=== PATIENT | female | born 1935 | race Caucasian/White ===

== ENCOUNTER → 2016-12-27 | Outpatient (CLI) | payer MEDICARE ==
[~2016-12-27] MED LIST: ALPR0.25 PO; ASPI1TAB PO; ATEN50TA2 PO; CALC1TAB30 PO; CHLO125TA PO; HYDR0.2C21 PV; SIMV20TA2 PO; VITA-130 PO
--- NOTE | 2016-12-27 14:12 | REPMRS ---
Patient History The patient states she has not had a clinical breast exam in over a year. Patient is postmenopausal, has history of cancer in the left breast at age 70, and had previous chest radiation therapy at age 70. Family history of breast cancer in sister at age 30, colorectal cancer in sister at age 40, and breast cancer in sister at age 78. Malignant excisional biopsy of the left breast, 2006. Radiation therapy of the left breast, 2006. Took hormonal contraceptives for 10 years. Took unspecified hormones for 8 years. Digital Woman Screen Mammo: December 27, 2016 - Exam #: [id number] Bilateral CC and MLO view(s) were taken. Technologist: Bridgette Alicia, Technologist Prior study comparison: January 06, 2016, digital woman screen mammo performed at [facility]. January 03, 2015, digital woman screen mammo performed at [facility]. FINDINGS: The breast tissue is heterogeneously dense. This may lower the sensitivity of mammography. There has been no change in the appearance of the mammogram from the prior studies. There is a moderate amount of residual fibroglandular tissue which is fairly symmetric. There is no interval development of dominant mass, areas of architectural distortion, or clustered microcalcification typical of malignancy. ASSESSMENT: BI-RADS/ACR category 1 mammogram. Negative. Recommendation Routine screening mammogram in 1 year (for women over age 40). This mammogram was interpreted with the aid of an FDA-approved computer-aided dectection system. Electronically Signed By: Eddie Lozano MD 12/27/16 [id number]
== END ==
LOC: M WHC 12:46
PROVIDERS: ATTEND Family Medicine
DX: Z12.31 Encounter for screening mammogram for malignant neoplasm of breast (principal); Z78.0 Asymptomatic menopausal state; Z92.3 Personal history of irradiation; Z85.3 Personal history of malignant neoplasm of breast; Z80.3 Family history of malignant neoplasm of breast; Z92.21 Personal history of antineoplastic chemotherapy; Z92.29 Personal history of other drug therapy; Z92.0 Personal history of contraception

== ENCOUNTER 2017-05-30 17:36 | Emergency (ER) | payer MEDICARE ==
[~2017-05-30] VITALS: Ht 149.9 cm; Wt 55.5 kg
[~2017-05-30 17:36] MED LIST changes: -VITA-130 PO; +VITA500T PO
[2017-05-30] MEDS ORDERED: METO-398 PO (18:30)
[2017-05-30] MEDS ORDERED: CLON0.5T PO (18:30)
[2017-05-30 19:03] LABS: BASO % 0.5 % (0.0-1.0); EOS # 0.1 10^3/uL (0.0-0.50); IMMATURE GRANULOCYTE % 0.5 % (0-0); LYMPH # 1.1 10^3/uL (1.5-4.5); LYMPH % 17.9 % (24.0-44.0); MEAN CORPUSCULAR HEMOGLOBIN 30.7 pg (27.0-33.0); MEAN CORPUSCULAR HGB CONC 34.5 g/dl (32.0-36.5); MEAN CORPUSCULAR VOLUME 88.8 fl (80.0-96.0); MONO # 0.6 10^3/uL (0.0-0.8); MONO % 8.7 % (0.0-5.0); NEUTROPHILS # 4.5 10^3/uL (1.8-7.7); NEUTROPHILS % 71.4 % (36.0-66.0); PLATELET COUNT, AUTOMATED 173 10^3/uL (150-450); RED CELL DISTRIBUTION WIDTH 12.2 % (11.5-14.5); WHITE BLOOD COUNT 6.3 10^3/uL (4.0-10.0)
[2017-05-30] MEDS ORDERED: LORazepam 2 MG/ML VIAL (J2060) IV STA (19:27)
[2017-05-30] MEDS ORDERED: LABETALOL HCL 100 MG/20 ML VIAL IV STA ×2 (19:27→21:13)
[2017-05-30 19:34] LABS: ANION GAP 8 MEQ/L (8-16); BLOOD UREA NITROGEN 16 MG/DL (7-18); CALCIUM LEVEL 9.5 MG/DL (8.8-10.2); CARBON DIOXIDE LEVEL 29 MEQ/L (21-32); CHLORIDE LEVEL 102 MEQ/L (98-107); CREATININE FOR GFR 0.72 MG/DL (0.55-1.02); GLOMERULAR FILTRATION RATE > 60.0 (>32); GLUCOSE, FASTING 97 MG/DL (83-110); POTASSIUM SERUM 3.2 MEQ/L (3.5-5.1); SODIUM LEVEL 139 MEQ/L (136-145)
--- NOTE | 2017-05-30 19:37 | REP ---
AP PORTABLE CHEST: 05/30/2017. Clinical history: Chest pain. Comparison: 12/22/2015, 10/03/2006. Findings: Lungs well inflated. CP angles sharply defined. No effusion or definite infiltrate. Some minor fibrotic or atelectatic changes in the infrahilar region on the right. Heart size upper limits of normal. No vascular redistribution or pulmonary edema. Calcified aortic arch without aneurysm. Airway intact. Bones without acute finding. Impression. 1. Some minor basilar fiber ectatic change without acute infiltrate or effusion. 2. Borderline heart size, no edema. 3. No widening of the mediastinum. Airway and aorta intact. Signed by Ramos Lock MD 05/30/2017 08:05 P
[2017-05-30] MEDS ORDERED: POTASSIUM CHLORIDE 10 MEQ SR TABLET PO ONE (20:00)
[2017-05-30] MEDS ORDERED: METOPROLOL SUCC (TopROL XL) 50MG **XL** TAB PO ONE (21:15)
[2017-05-30 21:31] VITALS: BP 192/79
[2017-05-30] MEDS ORDERED: KEFL500C17 PO (22:11)
[2017-05-30] MEDS ORDERED: CEPHALEXIN 250 MG CAP PO ONE (22:15)
[2017-05-30 22:23] VITALS: BP 163/71
--- NOTE | 2017-06-01 14:07 | ECGEPIP ---
Stationary ECG Study [facility] - ED Test Date: 2017-05-30 Pat Name: HERBERT BYRNES Department: Room: - Gender: F Dam Tender Assistant: ansley : [id number] Requested By: Janie Acosta Order Number: [id number] Reading MD: Frieda Gates Measurements Intervals [place] Rate: 66 P: 76 ME: 164 QRS: 45 QRSD: 96 T: 63 QT: 391 QTc: 412 Interpretive Statements SINUS RHYTHM NONSPECIFIC ST & T-WAVE ABNORMALITY DELAYED R PROGRESSION SIMILAR 12/22/15 Electronically Signed On 06-01-2017 14:07:30 EST by Frieda Gates
== END 2017-05-30 22:38 | disposition home or self-care (01) ==
LOC: M ED 17:36
DX: I10 Essential (primary) hypertension (principal); N39.0 Urinary tract infection, site not specified; E87.6 Hypokalemia; Z79.82 Long term (current) use of aspirin; Z79.899 Other long term (current) drug therapy; Z88.8 Allergy status to other drugs, medicaments and biological substances; Z88.0 Allergy status to penicillin; Z88.1 Allergy status to other antibiotic agents
CPT/HCPCS: 36415; 71010; 80048; 81001; 82550; 82553; 84439; 84443; 84484; 85025; 93005; 93041; 94760; 96374; 96375; 99285; J2060

== ENCOUNTER → 2018-01-04 | Outpatient (CLI) | payer MEDICARE | LOC: M WHC 10:23 | DX: Z12.31 Encounter for screening mammogram for malignant neoplasm of breast (principal); Z80.3 Family history of malignant neoplasm of breast; Z85.3 Personal history of malignant neoplasm of breast; Z98.890 Other specified postprocedural states; R92.8 Other abnormal and inconclusive findings on diagnostic imaging of breast | CPT/HCPCS: 77067 ==

== ENCOUNTER → 2018-12-27 | Outpatient (CLI) | payer MEDICARE ==
[~2018-12-27] MED LIST changes: -ASPI1TAB PO; +ASPI81TA26 PO; +CLON0.5T8 PO; +KEFL500C17 PO; +METO200T28 PO
--- NOTE | 2018-12-27 15:51 | REPMRS ---
Patient History The patient states she has not had a clinical breast exam in over a year. Family history of breast cancer at age 30 in sister, colorectal cancer at age 40 in sister, breast cancer at age 78 in sister. Malignant excisional biopsy of the left breast, 2006. Radiation therapy of the left breast, 2005. Took hormonal contraceptives for 10 years. Took unspecified hormones for 8 years. Digital Woman Screen Mammo: December 27, 2018 - Exam #: [id number] Bilateral CC and MLO view(s) were taken. Technologist: Kathie Thakur, Technologist Prior study comparison: January 04, 2018, bilateral digital woman screen mammo performed at [facility]. December 27, 2016, digital woman screen mammo performed at [facility]. January 06, 2016, digital woman screen mammo performed at [facility]. FINDINGS: The breast tissue is heterogeneously dense. This may lower the sensitivity of mammography. There are stable post treatment changes in the left breast. There is a moderate amount of heterogeneously dense fibroglandular tissue which is fairly symmetric. There is no interval development of dominant mass, architectural distortion, or clustered microcalcification typical of malignancy. There has been no change in the appearance of the mammogram from the prior studies. 3-D tomosynthesis shows no additional findings. Assessment: BI-RADS/ACR category 2 mammogram. Benign Findings. Recommendation Routine screening mammogram of both breasts in 1 year (for women over age 40). This mammogram was interpreted with the aid of an FDA-approved computer-aided dectection system. Electronically Signed By: Michele Bonner MD 12/27/18 [id number]
== END ==
LOC: M WHC 10:50
PROVIDERS: ATTEND Family Medicine
DX: Z12.31 Encounter for screening mammogram for malignant neoplasm of breast (principal); Z80.3 Family history of malignant neoplasm of breast; Z85.3 Personal history of malignant neoplasm of breast; Z92.3 Personal history of irradiation; Z92.0 Personal history of contraception; Z92.23 Personal history of estrogen therapy

== ENCOUNTER → 2019-03-22 | Outpatient (CLI) | payer MEDICARE ==
--- NOTE | 2019-03-27 11:04 | DEXA ---
AP SPINE L1 - L4 1.489 2.6 4.5 LT FEMUR TOTAL 1.064 0.4 2.7 LT NECK 0.987 -0.4 2.0 RT FEMUR TOTAL 1.025 0.1 2.4 RT NECK 1.033 0.0 2.3 TOTAL BODY TOTAL OTHER COMMENTS: Normal bone densitometry of the spine and hips. The density of the spine has increased 12.4% since the initial exam on 04/04/2003. The spine density has increased 18.2% since the most recent exam on 01/14/2009. The density of the left hip has decreased 0.7% since the initial exam on 04/04/2003. The density of the left hip has increased 3.8% since the most recent exam on 01/14/2009. The density of the right hip has decreased 0.6% since the initial exam on 04/04/2003. The density of the right hip has increased 2.0% since the most recent exam on 01/14/2009. FOLLOW-UP: Recommendation for the next bone density exam: 5 years. ALEXANDR
== END ==
LOC: M WHC 09:18
PROVIDERS: ATTEND Family Medicine
DX: Z13.820 Encounter for screening for osteoporosis (principal)

== ENCOUNTER 2019-04-12 16:50 | Emergency (ER) | payer MEDICARE ==
[~2019-04-12] VITALS: Ht 149.9 cm; Wt 50.0 kg
[2019-04-12] MEDS ORDERED: oxyCODONE 5MG TAB PO ONE (17:15)
--- NOTE | 2019-04-12 17:41 | REPVR ---
PROCEDURE INFORMATION: Exam: CT Head Without Contrast Exam date and time: 04/12/2019 5:08 PM Clinical history: 84 years old, female; Injury or trauma; Fall; Initial encounter; Blunt trauma (contusions or hematomas); Consciousness not specified TECHNIQUE: Imaging protocol: Computed tomography of the head without contrast. Radiation optimization: All CT scans at this facility use at least one of these dose optimization techniques: automated exposure control; mA and/or kV adjustment per patient size (includes targeted exams where dose is matched to clinical indication); or iterative reconstruction. COMPARISON: CT Head without contrast 12/22/2015 7:54 PM FINDINGS: Brain: There is moderate age-related parenchymal volume loss. 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 Ventricles: The degree of ventricular dilatation is normal for age. No pathologic enlargement demonstrated. Bones/joints: Unremarkable. No acute fracture. Sinuses: Visualized sinuses are unremarkable. No fluid levels. Mastoid air cells: Visualized mastoid air cells are well aerated. Soft tissues: Unremarkable. IMPRESSION: There is moderate age-related parenchymal volume loss. 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 Electronically signed by: Moshe Matthews On 04/12/2019 17:41:22 PM
--- NOTE | 2019-04-12 17:47 | REPVR ---
PROCEDURE INFORMATION: Exam: CT Cervical Spine Without Contrast Exam date and time: 04/12/2019 5:08 PM Clinical history: 84 years old, female; Injury or trauma; Fall; Initial encounter; Blunt trauma TECHNIQUE: Imaging protocol: Computed tomography images of the cervical spine without contrast. Radiation optimization: All CT scans at this facility use at least one of these dose optimization techniques: automated exposure control; mA and/or kV adjustment per patient size (includes targeted exams where dose is matched to clinical indication); or iterative reconstruction. COMPARISON: No relevant prior studies available. FINDINGS: Vertebrae: No acute fracture. Normal alignment. Discs/Spinal canal/Neural foramina: Marked degenerative changes in the atlantoaxial joint with thickened partially calcified ligaments. Narrowing at C5-6 with small vertebral osteophytes. Mild bilateral foraminal narrowing at C5. Small posterior disc protrusion at C3-4 and C4-5 without spinal cord impingement. Posterior disc osteophyte complex at C6-7 effacing the ventral subarachnoid space without significant cord impingement. Soft tissues: Moderate to severe atherosclerotic changes demonstrated in both proximal internal carotid arteries at the bifurcation. Unremarkable. Lungs: Lung apices are normal. IMPRESSION: Mild degenerative spondylosis. No acute findings. Electronically signed by: Moshe Matthews On 04/12/2019 17:47:10 PM
--- NOTE | 2019-04-12 17:55 | REPVR ---
PROCEDURE INFORMATION: Exam: CT Lumbar Spine Without Contrast Exam date and time: 04/12/2019 5:08 PM Clinical history: 84 years old, female; Injury or trauma; Fall; Initial encounter; Blunt trauma (contusions or hematomas) TECHNIQUE: Imaging protocol: Computed tomography images of the lumbar spine without contrast. Radiation optimization: All CT scans at this facility use at least one of these dose optimization techniques: automated exposure control; mA and/or kV adjustment per patient size (includes targeted exams where dose is matched to clinical indication); or iterative reconstruction. COMPARISON: No relevant prior studies available. FINDINGS: Vertebrae: Mild degenerative anterolisthesis of L4 and L5. Mild diffuse degenerative spondylosis of the lumbar spine. Discs/Spinal canal/Neural foramina: Mild to moderate central spinal stenosis at L2-L3, moderate to severe central spinal stenosis at L3-L4, severe central spinal stenosis L4-L5. Soft tissues: Marked atherosclerotic calcifications in the abdominal aorta without evidence of aneurysm. Nonobstructive right renal calculus. Left renal cysts measure up to 2.8 cm. Otherwise Unremarkable. IMPRESSION: 1. Degenerative spondylosis. 2. Multilevel spinal stenoses as described above most pronounced at L4-L5 there is a severe central spinal stenosis. 3. No acute findings. Electronically signed by: Moshe Matthews On 04/12/2019 17:54:46 PM
[2019-04-12 18:30] VITALS: BP 185/81
== END 2019-04-12 18:39 | disposition home or self-care (01) ==
LOC: EDBD 16:50 → M ED 16:50 → EDSEX 16:50 → M ED 18:39
DX: S00.03XA Contusion of scalp, initial encounter (principal); S39.012A Strain of muscle, fascia and tendon of lower back, initial encounter; W19.XXXA Unspecified fall, initial encounter; Y92.098 Other place in other non-institutional residence as the place of occurrence of the external cause; M47.816 Spondylosis without myelopathy or radiculopathy, lumbar region; M48.061 Spinal stenosis, lumbar region without neurogenic claudication; M47.892 Other spondylosis, cervical region; I10 Essential (primary) hypertension; Z88.5 Allergy status to narcotic agent; Z88.6 Allergy status to analgesic agent; Z88.1 Allergy status to other antibiotic agents; Z88.0 Allergy status to penicillin; Z79.899 Other long term (current) drug therapy; Z79.82 Long term (current) use of aspirin

== ENCOUNTER → 2020-01-24 | Outpatient (CLI) | payer MEDICARE ==
[~2020-01-24] MED LIST changes: +CLON0.5T2 PO; -CLON0.5T8 PO; -SIMV20TA2 PO; +SIMV20TA22 PO; +VITA-243 PO; -VITA500T PO
--- NOTE | 2020-01-24 11:33 | REPMRS ---
Patient History The patient states she has not had a clinical breast exam in over a year. Family history of breast cancer at age 30 in sister, colorectal cancer at age 40 in sister, breast cancer at age 78 in sister. Malignant excisional biopsy of the left breast, 2006. Radiation therapy of the left breast, 2006. Took hormonal contraceptives for 10 years. Took unspecified hormones for 8 years. 3D TOMOSYNTHESIS WAS PERFORMED. JODY E[facility] Digital Woman Screen Mammo: January 24, 2020 - Exam #: [id number] Bilateral CC and MLO view(s) were taken. Technologist: Susannah Johnson, Technologist Prior study comparison: December 27, 2018, bilateral digital woman screen mammo performed at [facility]. January 04, 2018, bilateral digital woman screen mammo performed at [facility]. FINDINGS: The breast tissue is extremely dense which could obscure a lesion on mammography. There has been no change in the appearance of the mammogram from the prior studies. There is a moderate amount of residual fibroglandular tissue which is fairly symmetric. There is no interval development of dominant mass, areas of architectural distortion, or clustered microcalcification typical of malignancy. Assessment: BI-RADS/ACR category 1 mammogram. Negative Mammogram. Recommendation Routine screening mammogram in 1 year (for women over age 40). This mammogram was interpreted with the aid of an FDA-approved computer-aided dectection system. Electronically Signed By: Eddie Lozano MD 01/24/20 [id number]
== END ==
LOC: M WHC 09:00
PROVIDERS: ATTEND Family Medicine
DX: Z12.31 Encounter for screening mammogram for malignant neoplasm of breast (principal); Z80.3 Family history of malignant neoplasm of breast; Z80.0 Family history of malignant neoplasm of digestive organs; Z85.3 Personal history of malignant neoplasm of breast; Z92.0 Personal history of contraception

== ENCOUNTER → 2021-01-26 | Outpatient (CLI) | payer MEDICARE ==
--- NOTE | 2021-01-26 16:26 | REPMRS ---
Patient History The patient states she has not had a clinical breast exam in over a year. Family history of breast cancer at age 30 in sister, colorectal cancer at age 40 in sister, breast cancer at age 78 in sister. Malignant excisional biopsy of the left breast, 2006. Radiation therapy of the left breast, 2006. Took hormonal contraceptives for 10 years. Took unspecified hormones for 8 years. Patient states no breast complaints today. Patient has signed MRS History Sheet. Digital Woman Screen Mammo: January 26, 2021 - Exam #: [id number] Bilateral CC and MLO view(s) were taken. Technologist: Kathie Thakur, Technologist Prior study comparison: January 24, 2020, bilateral digital woman screen mammo performed at [facility]. December 27, 2018, bilateral digital woman screen mammo performed at [facility]. FINDINGS: The breast tissue is heterogeneously dense. This may lower the sensitivity of mammography. Screening. This patient?s lifetime risk for the development of invasive breast cancer can?t be calculated due to her age (less than 20 or greater than 85 years) or a prior history of in situ or invasive breast cancer. Digital screening (2D) mammography was performed bilaterally. Additionally, breast tomosynthesis (3D mammography) was performed bilaterally in the CC and MLO projections. Today's exam was compared to the prior exam/exams. By history, the patient has no complaints of a palpable breast abnormality or other significant breast complaints. The patient is status post lumpectomy/chemo radiation therapy due to breast carcinoma. The breasts are unchanged in size and shape. There are no awa-areas of internal architectural distortion. There are no awa-soft tissue densities or areas of spiculation.Once again, stable benign appearing calcifications are seen. There is unchanged post radiation skin thickening. IMPRESSION: BI-RADS Category 2- Benign Findings. There is no evidence of malignant alteration of the breasts. Routine bilateral screening mammogram recommended at its regularly scheduled annual interval. The Volpara volumetric breast density category is C, the breasts are heterogenously dense which may obscure small masses. This mammogram was read with the assistance of [employer],an FDA approved computer aided detection system for mammography. Due to the density of the breasts or Tyrer Cuzick score of 20% or greater, MRI/whole breast screening ultrasound is warranted. Negative x-ray reports should not delay surgical consultation if a dominant or clinically suspicious mass is present. Not all breast cancers can be identified by mammography. Therefore, we recommend that you continue to perform regular breast self-examination and physical examination and then promptly contact your physician of any concerns or changes. Adenosis and dense breasts may obscure an underlying neoplasm. Assessment: BI-RADS/ACR category 2 mammogram. Benign Findings. Recommendation Routine screening mammogram of both breasts in 1 year. Electronically Signed By: Akin Ziegler DO 01/26/21 [id number]
== END ==
LOC: M WHC 15:19
PROVIDERS: ATTEND Family Medicine
DX: Z12.31 Encounter for screening mammogram for malignant neoplasm of breast (principal)

== ENCOUNTER 2021-12-07 18:06 | Observation (INO) | payer MEDICARE ==
[~2021-12-07] VITALS: Ht 137.2 cm; Wt 52.1 kg
[2021-12-07] MEDS ORDERED: METO1TAB7 (18:18)
[2021-12-07] MEDS ORDERED: HYDR12.55 (18:18)
[2021-12-07] MEDS ORDERED: hydroCHLOROthiazide 12.5 MG CAPSULE PO ONE (22:25)
[2021-12-07] MEDS ORDERED: clonazePAM 0.5 MG TAB PO ONE (22:25)
[2021-12-07] MEDS ORDERED: METOPROLOL SUCC *XL* 25MG TAB (TopROL *XL*) PO ONE (22:25)
[2021-12-07 23:11] LABS: BASO % 0.5 % (0.0-1.0); EOS # 0.1 10^3/uL (0.0-0.5); EOS % 1.4 % (0.0-3.0); HEMOGLOBIN 14.5 g/dl (12.0-15.5); LYMPH % 25.5 % (24.0-44.0); MEAN CORPUSCULAR HEMOGLOBIN 29.5 pg (27.0-33.0); MEAN CORPUSCULAR VOLUME 89.6 fl (80.0-96.0); MONO # 0.6 10^3/uL (0.0-0.8); MONO % 7.7 % (2.0-8.0); NEUTROPHILS % 64.4 % (36.0-66.0); PLATELET COUNT, AUTOMATED 219 10^3/uL (150-450); RED BLOOD COUNT 4.91 10^6/uL (4.00-5.40); WHITE BLOOD COUNT 7.8 10^3/uL (4.0-10.0)
[2021-12-07] MEDS ORDERED: LABETALOL 100MG/20ML VIAL IV STA ×2 (23:12→23:58)
[2021-12-07 23:36] LABS: BLOOD UREA NITROGEN 18 MG/DL (7-18); CALCIUM LEVEL 9.5 MG/DL (8.8-10.2); CARBON DIOXIDE LEVEL 30 MEQ/L (21-32); CHLORIDE LEVEL 102 MEQ/L (98-107); CREATININE FOR GFR 0.71 MG/DL (0.55-1.30); GLOMERULAR FILTRATION RATE > 60.0 (>32); GLUCOSE, FASTING 104 MG/DL (70-100); POTASSIUM SERUM 3.9 MEQ/L (3.5-5.1); SODIUM LEVEL 139 MEQ/L (136-145)
[2021-12-08 00:20] VITALS: BP 238/66
[2021-12-08] MEDS ORDERED: HYDR12CA PO (00:29)
[2021-12-08] MEDS ORDERED: METO1TAB7 PO (00:29)
[2021-12-08] MEDS ORDERED: ACET-897 PO (00:30)
[2021-12-08] MEDS ORDERED: SYST1SOL4 OU (00:30)
[2021-12-08] MEDS ORDERED: HOME MED LIST COMPLETE! XX SCH (00:30)
[2021-12-08 01:11] LABS: RSV AMPLIFICATION NEGATIVE (NEGATIVE)
[2021-12-08] MEDS ORDERED: LABETALOL 100MG/20ML VIAL IV PRN (02:05)
[2021-12-08] MEDS ORDERED: MAALOX 30 ML SUSP *UDC PO PRN (02:05)
[2021-12-08] MEDS ORDERED: ACETAMINOPHEN TAB 650MG DOSE (2X325MG) PO PRN (02:05)
[2021-12-08] MEDS ORDERED: MOM 30ML SUSPENSION UDC PO PRN (02:05)
[2021-12-08] MEDS ORDERED: METAL LOCK LOOP XX ONE (03:20)
[2021-12-08] MEDS ORDERED: REMDESIVIR 200 MG in NS 250 ML IV ONE (04:00)
[2021-12-08 04:10] VITALS: BP 168/70
[2021-12-08] MEDS: HEPARIN SOD (PORCINE) 5000UNITS/ML 1ML VIAL/SYRINGE SC SCH ×2 (05:16→14:00)
[2021-12-08 05:54] LABS: BASO % 0.4 % (0.0-1.0); EOS % 0.3 % (0.0-3.0); HEMATOCRIT 39.8 % (36.0-47.0); HEMOGLOBIN 13.3 g/dl (12.0-15.5); LYMPH % 9.4 % (24.0-44.0); MEAN CORPUSCULAR HEMOGLOBIN 29.9 pg (27.0-33.0); MEAN CORPUSCULAR HGB CONC 33.4 g/dl (32.0-36.5); MEAN CORPUSCULAR VOLUME 89.4 fl (80.0-96.0); MONO % 8.6 % (2.0-8.0); PLATELET COUNT, AUTOMATED 171 10^3/uL (150-450); RED BLOOD COUNT 4.45 10^6/uL (4.00-5.40); WHITE BLOOD COUNT 11.1 10^3/uL (4.0-10.0)
[2021-12-08] MEDS ORDERED: SODIUM CHLORIDE 0.9% INJ 10 ML SYR IV ONE (06:00)
[2021-12-08 06:32] LABS: ALBUMIN 3.2 GM/DL (3.2-5.2); ALT/SGPT 24 U/L (12-78); BILIRUBIN,TOTAL 0.9 MG/DL (0.2-1.0); BLOOD UREA NITROGEN 20 MG/DL (7-18); CALCIUM LEVEL 9.3 MG/DL (8.8-10.2); CARBON DIOXIDE LEVEL 29 MEQ/L (21-32); CHLORIDE LEVEL 104 MEQ/L (98-107); CREATININE FOR GFR 0.81 MG/DL (0.55-1.30); GLOMERULAR FILTRATION RATE > 60.0 (>32); GLUCOSE, FASTING 150 MG/DL (70-100); MAGNESIUM LEVEL 2.1 MG/DL (1.8-2.4); POTASSIUM SERUM 3.1 MEQ/L (3.5-5.1); SODIUM LEVEL 137 MEQ/L (136-145); TOTAL PROTEIN 6.9 GM/DL (6.4-8.2)
[2021-12-08] MEDS ORDERED: POTASSIUM CHLORIDE 10MEQ SR TABLET PO ONE (07:00)
[2021-12-08 07:19] LABS: INR 1.02; PROTHROMBIN TIME 13.8 SECONDS (12.7-14.5)
[2021-12-08 07:20] LABS: PARTIAL THROMBOPLASTIN TIME 32.5 SECONDS (25.9-37.0)
[2021-12-08 07:22] LABS: D-DIMER QUANT 809.63 ng/ml (<500)
[2021-12-08 07:37] LABS: C REACTIVE PROTEIN QUANTITATIV 0.64 MG/DL (0.00-0.30)
[2021-12-08 08:18] VITALS: BP 158/70
[2021-12-08] MEDS ORDERED: ASPIRIN 81MG ENTERIC TABLET PO SCH (09:00)
[2021-12-08] MEDS ORDERED: clonazePAM 0.5 MG TAB PO SCH (09:00)
[2021-12-08] MEDS ORDERED: ASCORBIC ACID 500 MG TAB PO SCH (09:00)
[2021-12-08 12:05] VITALS: BP 166/70
[2021-12-08 12:42] VITALS: BP 138/64
[2021-12-08] MEDS ORDERED: HYDR-3490 PO (13:55)
[2021-12-08] MEDS ORDERED: SIMVASTATIN 20 MG TAB PO SCH (21:00)
[2021-12-08] MEDS ORDERED: METOPROLOL SUCC *XL* 25MG TAB (TopROL *XL*) PO SCH (21:00)
[2021-12-09] MEDS ORDERED: REMDESIVIR 100 MG in NS 250 ML IV SCH (04:00)
[2021-12-09] MEDS ORDERED: SODIUM CHLORIDE 0.9% INJ 10 ML SYR IV SCH (05:00)
== END 2021-12-08 15:25 | disposition home or self-care (01) ==
LOC: M ED 18:06 → M ED INP 18:07 → M 4MAIN 12-08 04:14
PROVIDERS: ADMIT Family Medicine; ATTEND Family Medicine
DX: I16.0 Hypertensive urgency (principal); U07.1 COVID-19; F41.9 Anxiety disorder, unspecified; N31.2 Flaccid neuropathic bladder, not elsewhere classified; C44.329 Squamous cell carcinoma of skin of other parts of face; C44.602 Unspecified malignant neoplasm of skin of right upper limb, including shoulder; E78.9 Disorder of lipoprotein metabolism, unspecified; Z79.899 Other long term (current) drug therapy; Z79.82 Long term (current) use of aspirin; Z88.0 Allergy status to penicillin; Z88.1 Allergy status to other antibiotic agents; Z88.5 Allergy status to narcotic agent; Z88.8 Allergy status to other drugs, medicaments and biological substances
CPT/HCPCS: 36415; 71046; 80048; 80053; 82550; 82728; 83615; 83735; 84484; 85025; 85379; 85384; 85610; 85730; 86140; 87631; 93005; 93041; 93306; 94760; 96372; 96374; 96375; 96376; 99285; G0378; J0248; J1644

== ENCOUNTER 2022-01-03 07:07 | Inpatient (IN) | payer MEDICARE ==
[~2022-01-03] VITALS: Ht 152.4 cm; Wt 51.0 kg
[~2022-01-03 07:07] MED LIST changes: +ACET-897 PO; +HYDR-3490 PO; +HYDR12.55; +HYDR12CA PO; +METO1TAB7; +METO1TAB7 PO; +SYST1SOL4 OU
[2022-01-03] MEDS ORDERED: ONDANSETRON 4MG/2ML VIAL IV ONE (08:55)
[2022-01-03] MEDS ORDERED: fentaNYL 100 MCG/2 ML INJECTION IV ONE (08:55)
[2022-01-03 14:06] LABS: BASO % 0.3 % (0.0-1.0); EOS % 0.1 % (0.0-3.0); HEMATOCRIT 35.4 % (36.0-47.0); HEMOGLOBIN 12.1 g/dl (12.0-15.5); LYMPH # 0.7 10^3/uL (1.5-5.0); LYMPH % 6.2 % (24.0-44.0); MEAN CORPUSCULAR HEMOGLOBIN 30.4 pg (27.0-33.0); MEAN CORPUSCULAR HGB CONC 34.2 g/dl (32.0-36.5); MEAN CORPUSCULAR VOLUME 88.9 fl (80.0-96.0); MONO # 0.7 10^3/uL (0.0-0.8); MONO % 6.4 % (2.0-8.0); NEUTROPHILS % 86.4 % (36.0-66.0); PLATELET COUNT, AUTOMATED 249 10^3/uL (150-450); RED BLOOD COUNT 3.98 10^6/uL (4.00-5.40); WHITE BLOOD COUNT 10.4 10^3/uL (4.0-10.0)
[2022-01-03 14:37] LABS: RSV AMPLIFICATION NEGATIVE (NEGATIVE)
[2022-01-03 14:41] LABS: BLOOD UREA NITROGEN 13 MG/DL (7-18); CALCIUM LEVEL 8.8 MG/DL (8.8-10.2); CARBON DIOXIDE LEVEL 25 MEQ/L (21-32); CHLORIDE LEVEL 96 MEQ/L (98-107); CREATININE FOR GFR 0.59 MG/DL (0.55-1.30); GLOMERULAR FILTRATION RATE > 60.0 (>32); GLUCOSE, FASTING 104 MG/DL (70-100); POTASSIUM SERUM 4.4 MEQ/L (3.5-5.1); SODIUM LEVEL 131 MEQ/L (136-145)
[2022-01-03] MEDS: NS 1,000 ML IV SCH ×2 (15:15→21:07)
[2022-01-03] MEDS ORDERED: MORPHINE 2 MG/ML 1ML VIAL IV PRN ×2 (15:15)
[2022-01-03] MEDS ORDERED: CITA10TA7 PO (15:16)
[2022-01-03] MEDS ORDERED: HYDR-3490 PO (15:54)
[2022-01-03] MEDS ORDERED: MIRALAX *UNIT DOSE* 17GM PACKET PO PRN (16:15)
[2022-01-03] MEDS ORDERED: HOME MED LIST COMPLETE! XX SCH (16:45)
[2022-01-03] MEDS ORDERED: hydrALAZINE 20MG/ML 1ML VIAL (J0360 PER 20MG) IV ONE (17:05)
[2022-01-03] MEDS ORDERED: KETOROLAC 30 MG/ML 1ML VIAL IV ONE (17:10)
[2022-01-03] MEDS: ACETAMINOPHEN TAB 650MG DOSE (2X325MG) PO PRN ×2 (17:47→21:56)
[2022-01-03 18:45] VITALS: BP 161/56
[2022-01-03 20:44] VITALS: BP 127/41
[2022-01-03] MEDS: SENNA 8.6 MG TAB (SENOKOT) PO SCH (21:05)
[2022-01-03] MEDS: clonazePAM 0.5 MG TAB PO SCH (21:05)
[2022-01-03] MEDS: SIMVASTATIN 20 MG TAB PO SCH (21:06)
[2022-01-03] MEDS: METOPROLOL SUCC (TopROL XL) 50MG **XL** TAB PO SCH (21:06)
[2022-01-03] MEDS: DOCUSATE SODIUM 100MG CAPSULE PO SCH (21:06)
[2022-01-04 06:00] VITALS: BP 148/53
[2022-01-04 06:47] LABS: HEMOGLOBIN 11.7 g/dl (12.0-15.5); MEAN CORPUSCULAR HEMOGLOBIN 30.5 pg (27.0-33.0); MEAN CORPUSCULAR HGB CONC 33.4 g/dl (32.0-36.5); MEAN CORPUSCULAR VOLUME 91.1 fl (80.0-96.0); PLATELET COUNT, AUTOMATED 172 10^3/uL (150-450); RED BLOOD COUNT 3.84 10^6/uL (4.00-5.40); WHITE BLOOD COUNT 8.2 10^3/uL (4.0-10.0)
[2022-01-04 07:07] LABS: ALBUMIN 2.6 GM/DL (3.2-5.2); ALT/SGPT 16 U/L (12-78); BILIRUBIN,TOTAL 1.4 MG/DL (0.2-1.0); BLOOD UREA NITROGEN 19 MG/DL (7-18); CALCIUM LEVEL 8.4 MG/DL (8.8-10.2); CARBON DIOXIDE LEVEL 30 MEQ/L (21-32); CHLORIDE LEVEL 98 MEQ/L (98-107); CREATININE FOR GFR 0.71 MG/DL (0.55-1.30); GLOMERULAR FILTRATION RATE > 60.0 (>32); GLUCOSE, FASTING 104 MG/DL (70-100); POTASSIUM SERUM 3.2 MEQ/L (3.5-5.1); SODIUM LEVEL 135 MEQ/L (136-145); TOTAL PROTEIN 5.7 GM/DL (6.4-8.2)
[2022-01-04] MEDS ORDERED: POTASSIUM CHLORIDE 10MEQ SR TABLET PO ONE (08:00)
[2022-01-04] MEDS: clonazePAM 0.5 MG TAB PO SCH ×2 (09:10→22:39)
[2022-01-04] MEDS: DOCUSATE SODIUM 100MG CAPSULE PO SCH ×2 (09:11→22:39)
[2022-01-04] MEDS: ENOXAPARIN 40MG/0.4ML SYRINGE (J1650 PER 10MG) SC SCH (09:13)
[2022-01-04] MEDS: ASPIRIN 81MG ENTERIC TABLET PO SCH (09:14)
[2022-01-04] MEDS: CitaloPRAM (CeleXA) 10 MG TABLET PO SCH (09:14)
[2022-01-04] MEDS: ASCORBIC ACID 500 MG TAB PO SCH (09:15)
[2022-01-04 14:00] VITALS: BP 127/46
[2022-01-04] MEDS: NS 1,000 ML IV SCH ×2 (14:30→22:41)
[2022-01-04] MEDS ORDERED: LIDOCAINE 1% MDV 20ML VIAL As Ordered ONE (15:57)
[2022-01-04 18:02] LABS: CRYSTALS, BODY FLUID NONE SEEN (NONE SEEN); SOURCE, BODY FLUID CRYSTALS LEFT HIP
[2022-01-04] MEDS ORDERED: VANCOMYCIN HCL 1,000 MG, VIAL MATE ADAPTER 1 EACH in NS 250 ML IV SCH (18:05)
[2022-01-04 18:18] LABS: SOURCE, BODY FLUID LT HIP; SYNOVIAL FLUID COLOR YELLOW (COLORLESS)
[2022-01-04 18:40] LABS: SOURCE, BODY FLUID GLUCOSE HIP LEFT; URIC ACID, BODY FLUID 3.8 MG/DL (NOT ESTABLISHED)
[2022-01-04 18:45] LABS: SOURCE, BODY FLUID URIC ACID OTHER
[2022-01-04] MEDS ORDERED: VANCOMYCIN HCL 1,000 MG, VIAL MATE ADAPTER 1 EACH in NS 250 ML IV ONE (20:00)
[2022-01-04] MEDS: ACETAMINOPHEN TAB 650MG DOSE (2X325MG) PO PRN (20:01)
[2022-01-04 22:00] VITALS: BP 148/47
[2022-01-04] MEDS: SIMVASTATIN 20 MG TAB PO SCH (22:40)
[2022-01-04] MEDS: SENNA 8.6 MG TAB (SENOKOT) PO SCH (22:40)
[2022-01-04] MEDS: METOPROLOL SUCC (TopROL XL) 50MG **XL** TAB PO SCH (22:41)
[2022-01-05] MEDS: VANCOMYCIN HCL 500 MG in D5W MINI-BAG PLUS 100 ML IV SCH ×2 (03:32→16:14)
[2022-01-05 06:00] VITALS: BP 147/71
[2022-01-05 06:07] LABS: HEMATOCRIT 33.6 % (36.0-47.0); HEMOGLOBIN 11.4 g/dl (12.0-15.5); MEAN CORPUSCULAR HEMOGLOBIN 31.2 pg (27.0-33.0); MEAN CORPUSCULAR HGB CONC 33.9 g/dl (32.0-36.5); MEAN CORPUSCULAR VOLUME 92.1 fl (80.0-96.0); PLATELET COUNT, AUTOMATED 166 10^3/uL (150-450); RED BLOOD COUNT 3.65 10^6/uL (4.00-5.40); WHITE BLOOD COUNT 8.5 10^3/uL (4.0-10.0)
[2022-01-05 06:31] LABS: ALBUMIN 2.4 GM/DL (3.2-5.2); ALT/SGPT 19 U/L (12-78); BILIRUBIN,TOTAL 0.8 MG/DL (0.2-1.0); BLOOD UREA NITROGEN 17 MG/DL (7-18); CALCIUM LEVEL 8.5 MG/DL (8.8-10.2); CARBON DIOXIDE LEVEL 24 MEQ/L (21-32); CHLORIDE LEVEL 104 MEQ/L (98-107); CREATININE FOR GFR 0.54 MG/DL (0.55-1.30); GLOMERULAR FILTRATION RATE > 60.0 (>32); GLUCOSE, FASTING 93 MG/DL (70-100); SODIUM LEVEL 137 MEQ/L (136-145); TOTAL PROTEIN 5.7 GM/DL (6.4-8.2)
[2022-01-05 08:00] VITALS: BP 187/79
[2022-01-05 08:08] LABS: C REACTIVE PROTEIN QUANTITATIV 9.38 MG/DL (0.00-0.30)
[2022-01-05] MEDS: clonazePAM 0.5 MG TAB PO SCH ×2 (09:57→20:38)
[2022-01-05] MEDS: ASPIRIN 81MG ENTERIC TABLET PO SCH (09:57)
[2022-01-05] MEDS: CitaloPRAM (CeleXA) 10 MG TABLET PO SCH (09:57)
[2022-01-05] MEDS: ASCORBIC ACID 500 MG TAB PO SCH (09:57)
[2022-01-05] MEDS: DOCUSATE SODIUM 100MG CAPSULE PO SCH ×2 (09:57→20:37)
[2022-01-05] MEDS: ENOXAPARIN 40MG/0.4ML SYRINGE (J1650 PER 10MG) SC SCH (09:58)
[2022-01-05] MEDS: NS 1,000 ML IV SCH (11:10)
[2022-01-05 11:54] VITALS: BP 152/80
[2022-01-05] MEDS ORDERED: FUROSEMIDE 40MG/4ML VIAL (J1940) IV ONE (13:50)
[2022-01-05 13:55] VITALS: BP 175/89
[2022-01-05 15:32] VITALS: BP 150/51
[2022-01-05] MEDS: SENNA 8.6 MG TAB (SENOKOT) PO SCH (20:38)
[2022-01-05] MEDS: METOPROLOL SUCC (TopROL XL) 50MG **XL** TAB PO SCH (20:38)
[2022-01-05] MEDS: SIMVASTATIN 20 MG TAB PO SCH (20:38)
[2022-01-05 22:00] VITALS: BP 161/62
[2022-01-06] MEDS: VANCOMYCIN HCL 500 MG in D5W MINI-BAG PLUS 100 ML IV SCH (04:09)
[2022-01-06 06:00] VITALS: BP 165/64
[2022-01-06 06:21] LABS: HEMATOCRIT 34.4 % (36.0-47.0); HEMOGLOBIN 11.7 g/dl (12.0-15.5); MEAN CORPUSCULAR HEMOGLOBIN 30.5 pg (27.0-33.0); MEAN CORPUSCULAR VOLUME 89.6 fl (80.0-96.0); PLATELET COUNT, AUTOMATED 164 10^3/uL (150-450); RED BLOOD COUNT 3.84 10^6/uL (4.00-5.40); WHITE BLOOD COUNT 9.7 10^3/uL (4.0-10.0)
[2022-01-06 06:55] LABS: ALBUMIN 2.3 GM/DL (3.2-5.2); ALT/SGPT 19 U/L (12-78); BILIRUBIN,TOTAL 1.1 MG/DL (0.2-1.0); BLOOD UREA NITROGEN 13 MG/DL (7-18); CALCIUM LEVEL 8.8 MG/DL (8.8-10.2); CARBON DIOXIDE LEVEL 28 MEQ/L (21-32); CHLORIDE LEVEL 97 MEQ/L (98-107); CREATININE FOR GFR 0.54 MG/DL (0.55-1.30); GLOMERULAR FILTRATION RATE > 60.0 (>32); GLUCOSE, FASTING 122 MG/DL (70-100); SODIUM LEVEL 133 MEQ/L (136-145); TOTAL PROTEIN 6.2 GM/DL (6.4-8.2)
[2022-01-06] MEDS ORDERED: POTASSIUM CHLORIDE 10MEQ SR TABLET PO ONE (08:00)
[2022-01-06] MEDS: DOCUSATE SODIUM 100MG CAPSULE PO SCH ×2 (09:25→20:24)
[2022-01-06] MEDS: CitaloPRAM (CeleXA) 10 MG TABLET PO SCH (09:26)
[2022-01-06] MEDS: clonazePAM 0.5 MG TAB PO SCH ×2 (09:26→20:23)
[2022-01-06] MEDS: ASCORBIC ACID 500 MG TAB PO SCH (09:26)
[2022-01-06] MEDS: ASPIRIN 81MG ENTERIC TABLET PO SCH (09:26)
[2022-01-06] MEDS: ENOXAPARIN 40MG/0.4ML SYRINGE (J1650 PER 10MG) SC SCH (09:26)
[2022-01-06] MEDS: ACETAMINOPHEN TAB 650MG DOSE (2X325MG) PO PRN ×2 (09:49→20:29)
[2022-01-06] MEDS: amLODIPine 5 MG TAB PO SCH (11:43)
[2022-01-06] MEDS ORDERED: PROHANCE 279.3MG/ML 15ML VIAL As Ordered ONE (14:07)
[2022-01-06 15:00] VITALS: BP 163/56
[2022-01-06] MEDS: SIMVASTATIN 20 MG TAB PO SCH (20:23)
[2022-01-06] MEDS: SENNA 8.6 MG TAB (SENOKOT) PO SCH (20:24)
[2022-01-06] MEDS: METOPROLOL SUCC (TopROL XL) 50MG **XL** TAB PO SCH (20:28)
[2022-01-06 22:00] VITALS: BP 144/48
[2022-01-07 05:54] LABS: HEMATOCRIT 34.3 % (36.0-47.0); HEMOGLOBIN 11.6 g/dl (12.0-15.5); MEAN CORPUSCULAR HEMOGLOBIN 30.2 pg (27.0-33.0); MEAN CORPUSCULAR HGB CONC 33.8 g/dl (32.0-36.5); MEAN CORPUSCULAR VOLUME 89.3 fl (80.0-96.0); PLATELET COUNT, AUTOMATED 172 10^3/uL (150-450); RED BLOOD COUNT 3.84 10^6/uL (4.00-5.40); WHITE BLOOD COUNT 7.7 10^3/uL (4.0-10.0)
[2022-01-07 06:00] VITALS: BP 187/68
[2022-01-07 06:23] LABS: BLOOD UREA NITROGEN 14 MG/DL (7-18); CALCIUM LEVEL 8.9 MG/DL (8.8-10.2); CARBON DIOXIDE LEVEL 30 MEQ/L (21-32); CHLORIDE LEVEL 99 MEQ/L (98-107); CREATININE FOR GFR 0.48 MG/DL (0.55-1.30); GLOMERULAR FILTRATION RATE > 60.0 (>32); GLUCOSE, FASTING 97 MG/DL (70-100); POTASSIUM SERUM 3.4 MEQ/L (3.5-5.1); SODIUM LEVEL 134 MEQ/L (136-145)
[2022-01-07] MEDS ORDERED: POTASSIUM CHLORIDE 10MEQ SR TABLET PO ONE (07:00)
[2022-01-07] MEDS: ENOXAPARIN 40MG/0.4ML SYRINGE (J1650 PER 10MG) SC SCH (08:03)
[2022-01-07] MEDS: DOCUSATE SODIUM 100MG CAPSULE PO SCH (08:05)
[2022-01-07] MEDS: clonazePAM 0.5 MG TAB PO SCH ×2 (08:05→20:33)
[2022-01-07] MEDS: ASPIRIN 81MG ENTERIC TABLET PO SCH (08:06)
[2022-01-07] MEDS: ASCORBIC ACID 500 MG TAB PO SCH (08:06)
[2022-01-07] MEDS: amLODIPine 5 MG TAB PO SCH (08:06)
[2022-01-07] MEDS: CitaloPRAM (CeleXA) 10 MG TABLET PO SCH (08:06)
[2022-01-07 12:00] VITALS: BP 158/56
[2022-01-07 14:00] VITALS: BP 158/56
[2022-01-07] MEDS: METOPROLOL SUCC (TopROL XL) 50MG **XL** TAB PO SCH (20:33)
[2022-01-07] MEDS: SIMVASTATIN 20 MG TAB PO SCH (20:33)
[2022-01-07 22:00] VITALS: BP 145/55
[2022-01-08 06:00] VITALS: BP 157/64
[2022-01-08 06:46] LABS: HEMOGLOBIN 11.2 g/dl (12.0-15.5); MEAN CORPUSCULAR HEMOGLOBIN 29.2 pg (27.0-33.0); MEAN CORPUSCULAR HGB CONC 32.9 g/dl (32.0-36.5); MEAN CORPUSCULAR VOLUME 88.8 fl (80.0-96.0); PLATELET COUNT, AUTOMATED 191 10^3/uL (150-450); RED BLOOD COUNT 3.83 10^6/uL (4.00-5.40); WHITE BLOOD COUNT 7.7 10^3/uL (4.0-10.0)
[2022-01-08 07:12] LABS: BLOOD UREA NITROGEN 13 MG/DL (7-18); CALCIUM LEVEL 8.9 MG/DL (8.8-10.2); CARBON DIOXIDE LEVEL 27 MEQ/L (21-32); CHLORIDE LEVEL 101 MEQ/L (98-107); CREATININE FOR GFR 0.55 MG/DL (0.55-1.30); GLOMERULAR FILTRATION RATE > 60.0 (>32); GLUCOSE, FASTING 101 MG/DL (70-100); POTASSIUM SERUM 3.7 MEQ/L (3.5-5.1); SODIUM LEVEL 134 MEQ/L (136-145)
[2022-01-08 09:09] VITALS: BP 157/64
[2022-01-08] MEDS: ASCORBIC ACID 500 MG TAB PO SCH (09:09)
[2022-01-08] MEDS: clonazePAM 0.5 MG TAB PO SCH (09:09)
[2022-01-08] MEDS: amLODIPine 5 MG TAB PO SCH (09:09)
[2022-01-08] MEDS: ENOXAPARIN 40MG/0.4ML SYRINGE (J1650 PER 10MG) SC SCH (09:10)
[2022-01-08] MEDS: ASPIRIN 81MG ENTERIC TABLET PO SCH (09:10)
[2022-01-08] MEDS: CitaloPRAM (CeleXA) 10 MG TABLET PO SCH (09:10)
[2022-01-08] MEDS ORDERED: AMLO1TAB24 PO (11:47)
[2022-01-08 14:00] VITALS: BP 155/60
[2022-01-08] MEDS: ACETAMINOPHEN TAB 650MG DOSE (2X325MG) PO PRN (14:24)
== END 2022-01-08 16:20 | disposition home or self-care (01) | DRG 565 ==
LOC: EDBD 07:07 → M ED 07:07 → M ED INP 16:00 → ENRESERV 16:24 → M MS5PR 18:30
PROVIDERS: ADMIT Internal Medicine; ATTEND Family Medicine
PROC: 0S9B3ZX Drainage of Left Hip Joint, Percutaneous Approach, Diagnostic (ICD-10-PCS; principal; 2022-01-04 15:31)
DX: M25.452 Effusion, left hip (principal); M48.56XA Collapsed vertebra, not elsewhere classified, lumbar region, initial encounter for fracture; E87.1 Hypo-osmolality and hyponatremia; I10 Essential (primary) hypertension; F41.9 Anxiety disorder, unspecified; E78.5 Hyperlipidemia, unspecified; N31.9 Neuromuscular dysfunction of bladder, unspecified; R33.9 Retention of urine, unspecified; D32.1 Benign neoplasm of spinal meninges; M16.12 Unilateral primary osteoarthritis, left hip; E87.8 Other disorders of electrolyte and fluid balance, not elsewhere classified; Z92.3 Personal history of irradiation; Z85.3 Personal history of malignant neoplasm of breast; Z85.828 Personal history of other malignant neoplasm of skin; Z79.82 Long term (current) use of aspirin; Z79.899 Other long term (current) drug therapy; Z88.0 Allergy status to penicillin; Z88.1 Allergy status to other antibiotic agents; Z88.5 Allergy status to narcotic agent; Z88.8 Allergy status to other drugs, medicaments and biological substances

== ENCOUNTER → 2022-02-26 | Outpatient (CLI) | payer MEDICARE ==
[~2022-02-26] MED LIST changes: +AMLO1TAB24 PO; +CITA10TA7 PO
== END ==
LOC: M WHC 12:24
PROVIDERS: ATTEND Family Medicine
DX: Z12.31 Encounter for screening mammogram for malignant neoplasm of breast (principal)

== ENCOUNTER → 2023-03-01 | Outpatient (CLI) | payer MEDICARE, MEDICAID | LOC: M WHC 11:55 | PROVIDERS: ATTEND Family Medicine | DX: Z12.31 Encounter for screening mammogram for malignant neoplasm of breast (principal) ==